=== PATIENT | female | born 1965 | race Two or more races ===

== ENCOUNTER → 2022-03-11 | Outpatient (CLI) | payer BC | LOC: M PLAIMG 15:16 | PROVIDERS: ATTEND Orthopaedic Surgery | DX: M75.121 Complete rotator cuff tear or rupture of right shoulder, not specified as traumatic (principal); M75.21 Bicipital tendinitis, right shoulder; M75.51 Bursitis of right shoulder ==

== ENCOUNTER 2022-05-11 22:31 | Inpatient (IN) | payer BC ==
[~2022-05-11] VITALS: Ht 167.6 cm; Wt 62.9 kg
[2022-05-11] MEDS ORDERED: FARX1TAB3 PO (22:41)
[2022-05-11] MEDS ORDERED: INVO100T PO (22:41)
[2022-05-11] MEDS ORDERED: METF-838 PO (22:41)
[2022-05-11] MEDS ORDERED: SEMA1PEN2 SQ (22:44)
[2022-05-11] MEDS ORDERED: TOUJ1.2I SC (22:44)
[2022-05-11] MEDS ORDERED: LEVO125T4 PO (22:44)
[2022-05-11] MEDS ORDERED: INSU100I26 SQ (22:44)
[2022-05-12] MEDS ORDERED: PERCOCET 5MG/325MG TAB PO ONE (01:00)
[2022-05-12 02:29] LABS: RSV AMPLIFICATION NEGATIVE (NEGATIVE)
[2022-05-12] MEDS ORDERED: METF500T13 PO (02:34)
[2022-05-12] MEDS ORDERED: PANT40TA29 PO (02:37)
[2022-05-12] MEDS ORDERED: VITA100018 PO (02:37)
[2022-05-12] MEDS ORDERED: ESTR10TA PV (02:37)
[2022-05-12] MEDS ORDERED: SUCR1TAB56 PO (02:37)
[2022-05-12] MEDS ORDERED: VITA-158 PO (02:42)
[2022-05-12] MEDS ORDERED: MULT1TAB16 PO (02:42)
[2022-05-12] MEDS ORDERED: TUMERIC PO (02:42)
[2022-05-12] MEDS ORDERED: VITA-298 PO (02:42)
[2022-05-12] MEDS ORDERED: VITA500030 PO (02:42)
[2022-05-12] MEDS ORDERED: ZYRT10TA12 PO (02:42)
[2022-05-12] MEDS ORDERED: CALC500T25 PO (02:42)
[2022-05-12] MEDS ORDERED: GLUCAGON INJ 1MG VIAL SC PRN (02:45)
[2022-05-12] MEDS ORDERED: MOM 30ML SUSPENSION UDC PO PRN (02:45)
[2022-05-12] MEDS ORDERED: MORPHINE 2 MG/ML 1ML VIAL IV PRN (02:45)
[2022-05-12] MEDS ORDERED: GLUCOSE 4GM CHEW TABLET PO PRN (02:45)
[2022-05-12] MEDS ORDERED: DEXTROSE 50% 50 ML SYRINGE IV PRN (02:45)
[2022-05-12] MEDS ORDERED: HOME MED LIST COMPLETE! XX SCH (02:45)
[2022-05-12 03:22] VITALS: BP 135/93
[2022-05-12] MEDS: NS 1,000 ML IV SCH ×2 (04:06→12:24)
[2022-05-12] MEDS: INSULIN LISPRO (NovoLOG) PER UNIT SC SCH ×4 (05:57→21:00)
[2022-05-12] MEDS: LEVOTHYROXINE 125MCG TABLET (0.125MG) PO SCH (05:57)
[2022-05-12] MEDS: ACETAMINOPHEN TAB 650MG DOSE (2X325MG) PO PRN ×3 (06:17→14:26)
[2022-05-12 07:01] LABS: BASO % 0.5 % (0.0-1.0); EOS # 0.1 10^3/uL (0.0-0.5); EOS % 0.9 % (0.0-3.0); HEMATOCRIT 37.4 % (36.0-47.0); LYMPH # 1.6 10^3/uL (1.5-5.0); LYMPH % 20.4 % (24.0-44.0); MEAN CORPUSCULAR HEMOGLOBIN 31.3 pg (27.0-33.0); MEAN CORPUSCULAR HGB CONC 32.1 g/dl (32.0-36.5); MEAN CORPUSCULAR VOLUME 97.4 fl (80.0-96.0); MONO % 12.5 % (2.0-8.0); NEUTROPHILS # 5.2 10^3/uL (1.5-8.5); NEUTROPHILS % 65.2 % (36.0-66.0); PLATELET COUNT, AUTOMATED 248 10^3/uL (150-450); RED BLOOD COUNT 3.84 10^6/uL (4.00-5.40); WHITE BLOOD COUNT 7.9 10^3/uL (4.0-10.0)
[2022-05-12 07:36] LABS: BLOOD UREA NITROGEN 17 MG/DL (7-18); CARBON DIOXIDE LEVEL 27 MEQ/L (21-32); CHLORIDE LEVEL 111 MEQ/L (98-107); CREATININE FOR GFR 0.74 MG/DL (0.55-1.30); GLOMERULAR FILTRATION RATE > 60.0 (>51); GLUCOSE, FASTING 130 MG/DL (70-100); POTASSIUM SERUM 3.5 MEQ/L (3.5-5.1); SODIUM LEVEL 142 MEQ/L (136-145)
[2022-05-12] MEDS: PANTOPRAZOLE 40MG TAB (PROTONIX) PO SCH ×2 (09:00→21:00)
[2022-05-12] MEDS: DOCUSATE SODIUM 100MG CAPSULE PO SCH ×2 (09:00→21:00)
[2022-05-12] MEDS: SUCRALFATE 1 GM TAB PO SCH ×4 (09:03→21:00)
[2022-05-12 14:00] VITALS: BP 121/65
[2022-05-12] MEDS ORDERED: HEPARIN SOD (PORCINE) 5000UNITS/ML 1ML VIAL/SYRINGE SC SCH (14:00)
[2022-05-12] MEDS: PERCOCET 5MG/325MG TAB PO PRN (19:30)
[2022-05-12 21:44] VITALS: BP 122/71
[2022-05-13] MEDS: PERCOCET 5MG/325MG TAB PO PRN ×3 (04:14→21:04)
[2022-05-13 04:45] VITALS: BP 125/70
[2022-05-13] MEDS: LEVOTHYROXINE 125MCG TABLET (0.125MG) PO SCH (05:46)
[2022-05-13] MEDS: ASPIRIN 81 MG CHEW TABLET PEG SCH (07:44)
[2022-05-13] MEDS: INSULIN LISPRO (NovoLOG) PER UNIT SC SCH ×4 (07:44→21:00)
[2022-05-13] MEDS: DOCUSATE SODIUM 100MG CAPSULE PO SCH ×2 (07:44→21:03)
[2022-05-13] MEDS: PANTOPRAZOLE 40MG TAB (PROTONIX) PO SCH ×2 (07:45→21:03)
[2022-05-13] MEDS: SUCRALFATE 1 GM TAB PO SCH ×4 (07:45→21:03)
[2022-05-13 09:24] LABS: HEMATOCRIT 35.7 % (36.0-47.0); HEMOGLOBIN 11.7 g/dl (12.0-15.5); MEAN CORPUSCULAR HEMOGLOBIN 32.5 pg (27.0-33.0); MEAN CORPUSCULAR HGB CONC 32.8 g/dl (32.0-36.5); MEAN CORPUSCULAR VOLUME 99.2 fl (80.0-96.0); PLATELET COUNT, AUTOMATED 241 10^3/uL (150-450); WHITE BLOOD COUNT 5.1 10^3/uL (4.0-10.0)
[2022-05-13 10:01] LABS: BLOOD UREA NITROGEN 13 MG/DL (7-18); CALCIUM LEVEL 8.3 MG/DL (8.5-10.1); CARBON DIOXIDE LEVEL 28 MEQ/L (21-32); CHLORIDE LEVEL 107 MEQ/L (98-107); CREATININE FOR GFR 0.79 MG/DL (0.55-1.30); GLOMERULAR FILTRATION RATE > 60.0 (>51); GLUCOSE, FASTING 216 MG/DL (70-100); POTASSIUM SERUM 4.2 MEQ/L (3.5-5.1); SODIUM LEVEL 140 MEQ/L (136-145)
[2022-05-13 14:00] VITALS: BP 135/77
[2022-05-13 20:00] VITALS: BP 110/69
[2022-05-14] MEDS: PERCOCET 5MG/325MG TAB PO PRN ×4 (00:05→12:41)
[2022-05-14] MEDS: LEVOTHYROXINE 125MCG TABLET (0.125MG) PO SCH (05:55)
[2022-05-14 06:00] VITALS: BP 137/75
[2022-05-14] MEDS: INSULIN LISPRO (NovoLOG) PER UNIT SC SCH ×2 (08:12→12:40)
[2022-05-14] MEDS: SUCRALFATE 1 GM TAB PO SCH ×2 (08:13→12:41)
[2022-05-14] MEDS: PANTOPRAZOLE 40MG TAB (PROTONIX) PO SCH (08:13)
[2022-05-14] MEDS: ASPIRIN 81 MG CHEW TABLET PEG SCH (08:13)
[2022-05-14] MEDS: DOCUSATE SODIUM 100MG CAPSULE PO SCH (08:13)
[2022-05-14] MEDS ORDERED: ENOXAPARIN 40MG/0.4ML SYRINGE (J1650 PER 10MG) SC SCH (09:00)
[2022-05-14 14:00] VITALS: BP 105/62
[2022-05-14] MEDS ORDERED: MIRA3350 PO (15:27)
[2022-05-14] MEDS ORDERED: PERCOCET PO (15:27)
[2022-05-14] MEDS ORDERED: COLA100C5 PO (15:27)
[2022-05-14] MEDS ORDERED: ASPI81CH33 PO (15:27)
== END 2022-05-14 16:35 | disposition home health service (06) | DRG 342 ==
LOC: M ED 22:31 → M ED INP 05-12 02:41 → M MS5PR 05-12 03:15 → ENRESERV 05-12 03:56
PROVIDERS: ADMIT Family Medicine; ATTEND Internal Medicine
DX: S82.142A Displaced bicondylar fracture of left tibia, initial encounter for closed fracture (principal); M25.062 Hemarthrosis, left knee; E11.9 Type 2 diabetes mellitus without complications; E03.9 Hypothyroidism, unspecified; S82.832A Other fracture of upper and lower end of left fibula, initial encounter for closed fracture; Z98.84 Bariatric surgery status; W01.0XXA Fall on same level from slipping, tripping and stumbling without subsequent striking against object, initial encounter; Y92.009 Unspecified place in unspecified non-institutional (private) residence as the place of occurrence of the external cause; Y93.89 Activity, other specified; Y99.8 Other external cause status; Z79.4 Long term (current) use of insulin; Z79.899 Other long term (current) drug therapy; Z79.890 Hormone replacement therapy

== ENCOUNTER → 2022-06-12 | Outpatient (CLI) | payer BC ==
[~2022-06-12] MED LIST: ASPI81CH33 PO; CALC500T25 PO; COLA100C5 PO; ESTR10TA PV; FARX1TAB3 PO; INSU100I26 SQ; INVO100T PO; LEVO125T4 PO; METF-838 PO; METF500T13 PO; MIRA3350 PO; MULT1TAB16 PO; PANT40TA29 PO; PERCOCET PO; SEMA1PEN2 SQ; SUCR1TAB56 PO; TOUJ1.2I SC; TUMERIC PO; VITA-158 PO; VITA-298 PO; VITA100018 PO; VITA500030 PO; ZYRT10TA12 PO
== END ==
LOC: M SOG 11:38
PROVIDERS: ATTEND Orthopaedic Surgery
DX: M25.562 Pain in left knee (principal); S82.102D Unspecified fracture of upper end of left tibia, subsequent encounter for closed fracture with routine healing

== ENCOUNTER 2022-07-03 08:15 | Outpatient (RCR) | payer BC ==
[~2022-07-03 08:15] MED LIST changes: +VITA-148 PO; -VITA-298 PO
== END 2022-07-14 ==
LOC: M PT 08:15
PROVIDERS: ATTEND Orthopaedic Surgery
DX: M25.562 Pain in left knee (principal)

== ENCOUNTER → 2022-07-03 | Outpatient (CLI) | payer BC | LOC: M SOG 08:37 | PROVIDERS: ATTEND Student in an Organized Health Care Education/Training Program | DX: M25.562 Pain in left knee (principal); S82.102D Unspecified fracture of upper end of left tibia, subsequent encounter for closed fracture with routine healing ==

== ENCOUNTER → 2022-08-13 | Outpatient (RCR) | payer BC | LOC: M PT 07-18 10:25 | PROVIDERS: ATTEND Orthopaedic Surgery | DX: M25.562 Pain in left knee (principal); S82.142D Displaced bicondylar fracture of left tibia, subsequent encounter for closed fracture with routine healing ==

== ENCOUNTER → 2022-08-28 | Outpatient (CLI) | payer BC | LOC: M SOG 09:45 | PROVIDERS: ATTEND Student in an Organized Health Care Education/Training Program | DX: M25.562 Pain in left knee (principal); S82.102D Unspecified fracture of upper end of left tibia, subsequent encounter for closed fracture with routine healing ==

== ENCOUNTER 2022-09-04 12:40 | Outpatient (RCR) | payer BC | END 2022-09-13 | LOC: M PT 12:40 | PROVIDERS: ATTEND Orthopaedic Surgery | DX: M25.562 Pain in left knee (principal) ==

== ENCOUNTER 2022-09-18 15:20 | Outpatient (RCR) | payer BC | END 2022-10-14 | LOC: M PT 15:20 | PROVIDERS: ATTEND Orthopaedic Surgery | DX: M25.562 Pain in left knee (principal) ==